=== PATIENT | female | born 1950 | race Hispanic/Latino ===

== ENCOUNTER 2017-05-05 06:27 | Emergency (ER) | payer MEDICARE ==
[2017-05-05 07:49] LABS: APPEARANCE,URINE Clear (CLEAR); BILIRUBIN,URINE Negative (NEGATIVE); COLOR,URINE Yellow (YELLOW); GLUCOSE, URINE (UA) Negative (NEGATIVE); KETONES,URINE Negative (NEGATIVE); LEUKOCYTE ESTERASE ,URINE Moderate (NEGATIVE); NITRATE,URINE Negative (NEGATIVE); OCCULT BLOOD,URINE Negative (NEGATIVE); PH,URINE 7.5 (5.0-8.0); PROTEIN,URINE Negative (NEGATIVE); UROBILINOGEN,URINE 0.2 mg/dL (0.2-1.0)
[2017-05-05 08:10] LABS: BACTERIA,URINE Rare /HPF (None Seen); RBC,URINE 0-1 /HPF (0-1); SQUAMOUS EPITHELIAL CELL,UR Rare /LPF (0-2); WBC,URINE 0-1 /HPF (0-1)
[2017-05-05] MEDS ORDERED: IBUPROFEN 600 MG TABLET ONE (08:24)
== END 2017-05-05 08:32 | disposition home or self-care (01) ==
LOC: EDH 06:27
DX: R10.2 Pelvic and perineal pain (principal); I10 Essential (primary) hypertension; M06.9 Rheumatoid arthritis, unspecified; Z88.0 Allergy status to penicillin
CPT/HCPCS: 81001

== ENCOUNTER → 2018-01-26 | Outpatient (CLI) | payer MEDICARE | END | disposition home or self-care (01) | LOC: RAH 09:56 | PROVIDERS: ATTEND Orthopaedic Surgery | DX: M25.461 Effusion, right knee (principal) | CPT/HCPCS: 73721 ==

== ENCOUNTER 2018-06-02 10:14 | Inpatient (IN) | payer OTHER, MEDICARE | END 2018-06-06 14:50 | disposition home or self-care (01) | LOC: EDH 10:14 → EDHIP 12:20 → 3BH 22:35 | DX: I20.0 Unstable angina (principal); I24.9 Acute ischemic heart disease, unspecified; I10 Essential (primary) hypertension; M06.9 Rheumatoid arthritis, unspecified ==

== ENCOUNTER → 2018-10-07 | Outpatient (CLI) | payer OTHER ==
[~2018-10-07] MED LIST: ASPI-1181 PO; HYDR200T4 PO; LOSA100T58 PO
== END | disposition home or self-care (01) ==
LOC: SLP 19:39
PROVIDERS: ATTEND Family Medicine
DX: G47.33 Obstructive sleep apnea (adult) (pediatric) (principal); I10 Essential (primary) hypertension; E11.9 Type 2 diabetes mellitus without complications
CPT/HCPCS: 95810

== ENCOUNTER → 2018-10-19 | Outpatient (CLI) | payer OTHER | END | disposition home or self-care (01) | LOC: SLP 20:04 | PROVIDERS: ATTEND Family Medicine | DX: G47.30 Sleep apnea, unspecified (principal) | CPT/HCPCS: 95811 ==

== ENCOUNTER → 2019-05-13 | Outpatient (CLI) | payer OTHER | END | disposition home or self-care (01) | LOC: OIH 11:15 | PROVIDERS: ATTEND Internal Medicine | DX: I10 Essential (primary) hypertension (principal); I70.0 Atherosclerosis of aorta | CPT/HCPCS: 71046 ==

== ENCOUNTER → 2020-03-27 | Outpatient (CLI) | payer OTHER ==
[~2020-03-27] MED LIST changes: -ASPI-1181 PO; +ASPI-1443 PO
== END | disposition home or self-care (01) ==
LOC: OIH 09:45
PROVIDERS: ATTEND Internal Medicine
DX: M25.512 Pain in left shoulder (principal)
CPT/HCPCS: 73030

== ENCOUNTER → 2020-06-21 | Outpatient (CLI) | payer OTHER | END | disposition home or self-care (01) | LOC: OIH 12:29 | PROVIDERS: ATTEND Internal Medicine | DX: M19.042 Primary osteoarthritis, left hand (principal); M19.041 Primary osteoarthritis, right hand ==

== ENCOUNTER → 2023-01-01 | Outpatient (CLI) | payer OTHER ==
[~2023-01-01] MED LIST changes: -HYDR200T4 PO; +HYDR200T75 PO; -LOSA100T58 PO; +LOSA100T59 PO
== END | disposition home or self-care (01) ==
LOC: RAH 14:35
PROVIDERS: ATTEND Internal Medicine
DX: S80.00XA Contusion of unspecified knee, initial encounter (principal); M17.0 Bilateral primary osteoarthritis of knee; X58.XXXA Exposure to other specified factors, initial encounter; Y93.89 Activity, other specified; Y92.89 Other specified places as the place of occurrence of the external cause; Y99.8 Other external cause status
CPT/HCPCS: 73560

== ENCOUNTER → 2023-04-22 | Outpatient (CLI) | payer OTHER | END | disposition home or self-care (01) | LOC: RAH 15:08 | PROVIDERS: ATTEND Internal Medicine | DX: M19.011 Primary osteoarthritis, right shoulder (principal); M47.22 Other spondylosis with radiculopathy, cervical region; M75.40 Impingement syndrome of unspecified shoulder | CPT/HCPCS: 72040; 73030 ==

== ENCOUNTER 2023-05-21 19:01 | Emergency (ER) | payer OTHER ==
[~2023-05-21] VITALS: Ht 154.9 cm; Wt 68.5 kg
[2023-05-21 20:44] LABS: BASOPHILS # (AUTO) 0.06 K/uL (0.00-0.20); BASOPHILS % (AUTO) 0.9 % (0.0-5.0); EOSINOPHILS # (AUTO) 0.07 K/uL (0.00-0.70); HEMATOCRIT 40.7 % (36-48); IMMATURE GRANULOCYTE ABSOLUTE 0.02 K/uL (0-1); LYMPHOCYTES # (AUTO) 1.7 K/uL (1.0-4.8); LYMPHOCYTES % (AUTO) 25.3 % (21.0-51.0); MEAN CORPUSCULAR HEMOGLOBIN 29.4 pg (27.0-33.0); MEAN CORPUSCULAR HGB CONC 34.4 g/dL (32.0-36.0); MEAN CORPUSCULAR VOLUME 85.3 fL (79-99); MONOCYTES # (AUTO) 0.5 K/uL (0.1-1.0); MONOCYTES % (AUTO) 7.2 % (3.0-13.0); NEUTROPHILS # (AUTO) 4.4 K/uL (1.8-7.7); NEUTROPHILS % (AUTO) 65.3 % (40.0-77.0); PLATELET COUNT (AUTO) 238 K/uL (130-400); RED BLOOD CELL COUNT(AUTO) 4.77 MIL/uL (4.00-5.50); RED CELL DISTRIBUTION WIDTH 13.1 % (11.0-15.5); WHITE BLOOD COUNT (AUTO) 6.8 K/uL (4.8-10.8)
[2023-05-21 21:16] LABS: B-TYPE NATRIURETIC PEPTIDE 29 pg/mL (0-100)
[2023-05-21 23:03] VITALS: BP 148/68; PULSE 90; RESP 18; O2SAT 99
[2023-05-21] MEDS ORDERED: IBUP-1493 PO (23:03)
[2023-05-21 23:14] LABS: CREATININE 0.7 mg/dL (0.5-1.5); POTASSIUM 3.5 mmol/L (3.5-5.1)
[2023-05-21 23:19] LABS: ALBUMIN 3.4 g/dL (3.5-5.0); BILIRUBIN,TOTAL 0.7 mg/dL (0.2-1.0); TOTAL PROTEIN, SERUM 6.8 g/dL (6.0-8.3)
== END 2023-05-21 23:05 | disposition home or self-care (01) ==
LOC: EDH 19:01
DX: S09.8XXA Other specified injuries of head, initial encounter (principal); I10 Essential (primary) hypertension; M19.90 Unspecified osteoarthritis, unspecified site; Z90.49 Acquired absence of other specified parts of digestive tract; Z79.82 Long term (current) use of aspirin; Z79.899 Other long term (current) drug therapy; Z98.890 Other specified postprocedural states; W18.39XA Other fall on same level, initial encounter; Y93.89 Activity, other specified; Y92.89 Other specified places as the place of occurrence of the external cause; Y99.8 Other external cause status
CPT/HCPCS: 36415; 70450; 71045; 72125; 80053; 83880; 84484; 85025

== ENCOUNTER → 2023-05-26 | Outpatient (CLI) | payer OTHER ==
[~2023-05-26] MED LIST changes: +IBUP-1493 PO
== END | disposition home or self-care (01) ==
LOC: RAH 08:34
PROVIDERS: ATTEND Internal Medicine
DX: I10 Essential (primary) hypertension (principal)
CPT/HCPCS: 75571

== ENCOUNTER 2024-01-31 17:24 | Emergency (ER) | payer OTHER ==
[~2024-01-31] VITALS: Ht 152.4 cm; Wt 65.8 kg
[2024-01-31] MEDS: FLUORESCEIN SODIUM 1 STRIP STRIP OP SCH (18:00)
[2024-01-31 18:21] LABS: BASOPHILS # (AUTO) 0.06 K/uL (0.00-0.20); BASOPHILS % (AUTO) 0.9 % (0.0-5.0); EOSINOPHILS # (AUTO) 0.04 K/uL (0.00-0.70); EOSINOPHILS % (AUTO) 0.6 % (0.0-8.0); HEMATOCRIT 42.4 % (36-48); IMMATURE GRANULOCYTE ABSOLUTE 0.01 K/uL (0-1); LYMPHOCYTES # (AUTO) 1.7 K/uL (1.0-4.8); LYMPHOCYTES % (AUTO) 24.1 % (21.0-51.0); MEAN CORPUSCULAR HEMOGLOBIN 29.1 pg (27.0-33.0); MEAN CORPUSCULAR VOLUME 85.7 fL (79-99); MONOCYTES # (AUTO) 0.5 K/uL (0.1-1.0); MONOCYTES % (AUTO) 7.8 % (3.0-13.0); NEUTROPHILS # (AUTO) 4.6 K/uL (1.8-7.7); NEUTROPHILS % (AUTO) 66.5 % (40.0-77.0); PLATELET COUNT (AUTO) 236 K/uL (130-400); RED BLOOD CELL COUNT(AUTO) 4.95 MIL/uL (4.00-5.50); RED CELL DISTRIBUTION WIDTH 12.6 % (11.0-15.5); WHITE BLOOD COUNT (AUTO) 6.9 K/uL (4.8-10.8)
[2024-01-31 18:27] LABS: CREATININE 0.7 mg/dL (0.5-1.0); POTASSIUM 3.6 mmol/L (3.5-5.1)
[2024-01-31] MEDS: AcetaZOLAMIDE 250 MG TAB PO ONE (18:36)
[2024-01-31] MEDS: morPHINE 2 MG SYG IVP ONE (18:37)
[2024-01-31] MEDS: ondanSETRON 4MG INJ IVP ONE (18:37)
[2024-01-31] MEDS: TIMOLOL MALEATE 0.25% 5 ML BOTTLE OS SCH (18:37)
[2024-01-31] MEDS: TETRACAINE HCL 0.5% 4 ML OPHTH SOLN OP SCH (19:00)
[2024-01-31 19:43] VITALS: BP 151/61; PULSE 74; RESP 17; TEMP 98.7; O2SAT 98
[2024-01-31] MEDS ORDERED: KETO10TA2 PO (19:58)
[2024-01-31] MEDS ORDERED: TIMO5DRO47 OS (19:58)
[2024-01-31] MEDS ORDERED: TIMOLOL MALEATE 0.5% 5 ML BOTTLE OS SCH (20:00)
== END 2024-01-31 20:05 | disposition home or self-care (01) ==
LOC: EDH 17:24
DX: H40.9 Unspecified glaucoma (principal); I10 Essential (primary) hypertension; M06.9 Rheumatoid arthritis, unspecified; Z79.1 Long term (current) use of non-steroidal anti-inflammatories (NSAID); Z79.82 Long term (current) use of aspirin; Z79.899 Other long term (current) drug therapy; Z88.8 Allergy status to other drugs, medicaments and biological substances; Z90.49 Acquired absence of other specified parts of digestive tract; Z98.890 Other specified postprocedural states
CPT/HCPCS: 99285; 96374; 70450; 96375; 80048; 85025; 36415; J2270; J2405

== ENCOUNTER → 2024-06-28 | Outpatient (CLI) | payer OTHER ==
[~2024-06-28] MED LIST changes: +KETO10TA2 PO; +TIMO5DRO47 OS
--- NOTE | 2024-06-28 11:48 | HMCIMG ---
CT calcium scoring Clinical Information: [facility] [place] SCREENING Comparison: None CT Dose Index (CTDI): 13.30 mGy Dose Length Product (DLP): 186.18 total mGy-cm Findings: Calcium score by 5.5. No identifiable calcification. The CT scan is not a complete chest CT. Covered portion is reviewed for incidental findings. Incidental finding of suspected pulmonary fibrotic changes. Consider full pulmonary high-resolution CT for further evaluation. IMPRESSION: Calcium score as above. Calcium score reference stable: 0: No identifiable calcification 1- 10: Minimal identifiable calcification 11-100: Mild calcification 101- 400: Moderate calcification 401 and above: Significant calcification Automated exposure control and adequate statistical iterative reconstructions were utilized as dose reduction techniques.
== END | disposition home or self-care (01) ==
LOC: RAH 11:13
PROVIDERS: ATTEND Internal Medicine
DX: Z13.6 Encounter for screening for cardiovascular disorders (principal)
CPT/HCPCS: 75571